=== PATIENT | male | born 1965 | race Caucasian/White ===

== ENCOUNTER 2019-01-02 11:32 | Inpatient (IN) | payer OTHER ==
[~2019-01-02] VITALS: Ht 180.3 cm; Wt 83.0 kg
[2019-01-02] MEDS ORDERED: METFORMIN HCL500 MG PO (11:57)
[2019-01-02] MEDS ORDERED: AMITRIPTYLINE H25 M3 PO (11:58)
[2019-01-02] MEDS ORDERED: AMARYL2 M1 PO (11:59)
[2019-01-02] MEDS ORDERED: NEURONTIN 300300 M1 PO (12:00)
[2019-01-02] MEDS ORDERED: CIPRO500 M1 PO (12:00)
[2019-01-02] MEDS ORDERED: DOXYCYCLINE 10100 MG PO (12:01)
[2019-01-02 12:02] LABS: HEMATOCRIT 35.2 % (42.0-52.0); HEMOGLOBIN 11.7 gm/dL (14.0-18.0); MCHC 33.3 g/dL (28.0-37.0); MCV 84.2 fL (80.0-100.0); MPV 7.1 fl. (7.2-11.1); RBC 4.18 mil/uL (4.50-6.00); RDW-CV 13.1 % (10.5-14.5); WBC 8.9 thou/uL (4.0-11.0)
[2019-01-02] MEDS ORDERED: SIMVASTATIN40 MG PO (12:02)
[2019-01-02 12:10] LABS: CALCIUM 9.4 mg/dL (8.5-10.1); CREATININE 1.7 mg/dL (0.6-1.3); POTASSIUM 4.6 mmol/L (3.5-5.1)
[2019-01-02 14:15] VITALS: BP 152/85
[2019-01-02 16:21] VITALS: BP 155/93
--- NOTE | 2019-01-02 16:47 | EKG ---
[place] [address] ELECTROCARDIOGRAM REPORT Name: KARRIE ABAD Room: [address] ADM IN M.R.#: [id number] Admission: 01/02/19 Attend Phys: Rui Pineda MD Discharge: Date of : 69 Report #: [id number] THIS REPORT FOR: //name// [facility] Test Date: 2019-01-02 Test Time: 12:03:00 Pat Name: KARRIE ABAD Department: Room: [address] Gender: M Wildlife Biology Internship: : 1965 Requested By: Francois Gonzalez Order Number: [id number] Roz MD: Blayne Hoffman Measurements Intervals [place] Rate: 118 P: 34 VA: 165 QRS: 30 QRSD: 99 T: 25 QT: 318 QTc: 446 Interpretive Statements Sinus tachycardia ST elev, probable normal early repol pattern No previous ECG available for comparison Electronically Signed On 01-02-2019 16:46:56 CDT by Blayne Hoffman [email or web address] <ELECTRONICALLY SIGNED> By: Blayne Hoffman MD, [facility] 01/02/19 1646 1203 02 Blayne Hoffman MD, FACC /EPI
--- NOTE | 2019-01-02 17:07 | NUR ---
PATIENT ARRIVED FROM OR THIS AFTERNOON. PATIENT AWAKE A ND ALERT UPON ARRIVAL. PATIENT DENIES ANY PAIN. HISTORY, ASSESSMENT AND VITALS COMPLETED AND DOCUMENTED. LEFT FOOT ELEVATED ON PILLOW AND HAS SURGICAL DRESSING ON. NO BLEED THROUGH AT THIS TIME. PATIENT HAS NOT BEEN OUT OF BED. PATIENT TO HAVE MRI THIS EVENING. IV ANTIBIOTICS ORDERED. PATIENT DENIES ANY NEEDS AT THIS TIME. CALL LIGHT WITHIN REACH. WILL CONTINUE TO MONITOR.
[2019-01-02 20:00] VITALS: BP 179/98
[2019-01-03] VITALS: BP 130/71
--- NOTE | 2019-01-03 01:16 | NUR ---
PT ALERT ORIENTED. L FOOT ELEVATED ON PILLOW. SURGICAL DRSG AND ARUN WRAPED. GOOD SENSATION IN TOES. VOIDS PER URINAL. PIV STARTED IN R HAND FOR SECOND IV SITE TO KEEP ANTIBIOTICS ON TIME.
[2019-01-03 03:54] LABS: HEMATOCRIT 32.1 % (42.0-52.0); MCH 28.7 pg (26.0-34.0); MCHC 34.4 g/dL (28.0-37.0); MCV 83.3 fL (80.0-100.0); MPV 7.2 fl. (7.2-11.1); RBC 3.85 mil/uL (4.50-6.00); WBC 6.4 thou/uL (4.0-11.0)
[2019-01-03 04:00] VITALS: BP 108/67
[2019-01-03 04:14] LABS: ALBUMIN 2.7 g/dL (3.4-5.0); CALCIUM 8.8 mg/dL (8.5-10.1); CREATININE 1.3 mg/dL (0.6-1.3); MAGNESIUM 1.2 mg/dL (1.8-2.4); POTASSIUM 4.3 mmol/L (3.5-5.1); TOTAL BILIRUBIN 0.5 mg/dL (<0.1-1.0)
--- NOTE | 2019-01-03 04:36 | NUR ---
AM MAG LEVEL 1.2. PRN REPLACEMENT STARTED.
[2019-01-03 08:10] VITALS: BP 110/70
--- NOTE | 2019-01-03 13:43 | NUR ---
SHEET METAL INSULATOR SPOKE TO THE PATIENT TO DISCUSS HIS HOME SITUATION, DISCHARGE PLANNING, AND TO INFORM OF THE ROLE OF CM. PATIENT IS ALERT, ORIENTED AND INDEPENDENT WITH ADL'S. PATIENT IS ACTIVE AND WORKS. PATIENT OWNS 0 DME AND HAS NO HX OF HH OR SNF. D/C FISCAL ACCOUNTING CLERK SPOKE TO THE PATIENT TO DISCUSS HIS POSSIBLE NEED FOR IV ABT'S AT D/C. PATIENT CONFIRMS THAT THE PHYSICIAN HAD INFORMED OF THIS AND IS IN AGREEMENT. PATIENT INFORMS THAT HE WOULD BE WILLING TO DO THE IV ABT'S AT HOME AND AGREES TO [facility]ERRAL [facility] D/C FISCAL ACCOUNTING CLERK ATEMPTED TO CONTACT [facility], LEFT A MESSAGE TO RETURN CALL, AND FAXED THE PATIENT'S FACESHEET AND MED LIST TO CHECK PATIENT'S BENEFITS. PATIENT CONCERNED THAT HE MAY NEED AT WALKER AT D/C. CM WILL REMAIN AVAILABLE TO ASSIST AND FOLLOW NEEDED. [facility] PHONE: [phone] FAX: [phone]
[2019-01-03 16:30] VITALS: BP 144/94
--- NOTE | 2019-01-03 18:19 | NUR ---
ASSUMED CARE OF PATIENT AT APPROX 0730. ALERT AND ORIENTED X4. ASSESSMENT COMPLETED AND CHARTED. VSS ON ROOM AIR. MINIMAL COMPLAINT OF PAIN MANAGED WITH ORAL MEDICATION. ANTIBIOTICS INFUSED ORDERED. PATIENT UP WITH THERAPY TODAY. MAGNESIUM REPLACED PER PROTOCOL. PATIENT UP TO CHAIR TODAY WITH THERAPY, MAINTAINING NON WEIGHT BEARING TO LEFT LOWER EXTEREMITY. FALL PRECAUTIONS IN PLACE. CALL LIGHT WITHIN REACH. HOURLY ROUNDS COMPLETED. WILL CONTINUE TO MONITOR.
[2019-01-03 20:30] VITALS: BP 143/88
[2019-01-04] VITALS: BP 125/73
[2019-01-04 03:23] LABS: HEMATOCRIT 32.6 % (42.0-52.0); HEMOGLOBIN 11.1 gm/dL (14.0-18.0); MCH 28.3 pg (26.0-34.0); MCHC 33.9 g/dL (28.0-37.0); MCV 83.6 fL (80.0-100.0); MPV 7.1 fl. (7.2-11.1); RBC 3.9 mil/uL (4.50-6.00); WBC 6.2 thou/uL (4.0-11.0)
[2019-01-04 03:36] LABS: CALCIUM 8.9 mg/dL (8.5-10.1); CREATININE 1.3 mg/dL (0.6-1.3); MAGNESIUM 1.4 mg/dL (1.8-2.4); POTASSIUM 4.3 mmol/L (3.5-5.1)
[2019-01-04 04:00] VITALS: BP 139/89
[2019-01-04 04:15] LABS: PREALBUMIN 15.8 mg/dL (18.0-35.7)
--- NOTE | 2019-01-04 05:29 | NUR ---
PT SLEPT WELL OVERNIGHT AFTER RECEIVING PO PAIN PILL AT HS FOR CO R FOOT PAIN.LFA AND R HAND IV SL, ABX GIVEN ORDERED. HS ACCUCHECK 66, SNACK GIVEN AND CAME UP TO 88. AM LABS DRAWN. TO HAVE VANC TROUGH 1600 TODAY. ARUN WRAP SURGICAL DRSG CDI TO LFOOT, TOES PINK AND WARM. USING URINAL TO VOID FROM BED WITHOUT DIFFICULTY. TALKATIVE, PLEASANT, AOX4. ABLE TO USE CALL LITE AND MAKE NEEDS KNOWN.
[2019-01-04 08:00] VITALS: BP 109/64
[2019-01-04 16:30] VITALS: BP 108/76
--- NOTE | 2019-01-04 17:30 | NUR ---
ASSUMED CARE OF PATIENT AT APPROX 0730. ALERT AND ORIENTED X4. ASSESSMENT COMPLETED AND CHARTED. VSS ON ROOM AIR. MINIMAL COMPLAINTS OF PAIN MANAGED WITH ORAL MEDICATION. ANTIBIOTICS INFUSED ORDERED. SPOKE WITH DR LESLIE THIS AFTERNOON ABOUT CHANGING THE DRESSING TO THE LEFT FOOT, I WAS GOING TO CHANGE IT BUT THE PATIENT ASKED THAT IT NOT BE CHANGED TWICE SO WILL WAIT FOR DR LESLIE TO COME IN TO CHANGE IT. PATIENTS PULSE IS ELEVATED IN THE 100'S, DR ORDERED AND EKG AND ECHO BE COMPLETED. EKG SHOWS SINUS TACHY BUT OTHERWISE UNREMARKABLE. PATIENT UP WITH WALKER, NON WEIGHT BEARING TO LEFT LOWER EXTREMITY. CALL LIGHT WITHIN REACH AND USES APPROPRIATELY. HOURLY ROUNDS COMPLETED. WILL CONTINUE TO MONITOR.
[2019-01-04 20:00] VITALS: BP 130/82
[2019-01-05 04:30] VITALS: BP 142/95
[2019-01-05 05:37] LABS: HEMATOCRIT 33.5 % (42.0-52.0); HEMOGLOBIN 11.5 gm/dL (14.0-18.0); MCH 28.8 pg (26.0-34.0); MCHC 34.5 g/dL (28.0-37.0); MCV 83.4 fL (80.0-100.0); MPV 7.4 fl. (7.2-11.1); RBC 4.01 mil/uL (4.50-6.00); RDW-CV 13.4 % (10.5-14.5); WBC 6.7 thou/uL (4.0-11.0)
[2019-01-05 05:46] LABS: CALCIUM 8.7 mg/dL (8.5-10.1); CREATININE 1.2 mg/dL (0.6-1.3); MAGNESIUM 1.6 mg/dL (1.8-2.4); POTASSIUM 4.5 mmol/L (3.5-5.1)
--- NOTE | 2019-01-05 07:26 | CON ---
[address] [address] CONSULTATION Name: KARRIE ABADRICK Room: [address] IN M.R.#: [id number] Admission: 01/02/19 Attend Phys: Rui Pineda MD Discharge: Date of : 69 Report #: [id number] THIS REPORT FOR: //name// CC: Petar Pineda Tc Stroud DATE OF SERVICE: 01/02/2019 INFECTIOUS DISEASE CONSULTATION ATTENDING PHYSICIAN: Rui Pineda MD REASON FOR EVALUATION: Left foot abscess. HISTORY OF PRESENT ILLNESS: Chart reviewed, patient examined. This is a 53-year-old gentleman with diabetes mellitus diagnosed roughly 10 years ago as type 2. He has at least early evidence of peripheral neuropathy. He apparently stepped on a large thorn that has penetrated through his tennis shoe. This was roughly 2-1/2 weeks ago. He did seek attention and did undergo debridement. It seemed to improve initially. He was on antibiotics; however, more recent culture apparently prompted a change. He has been on doxycycline as well as Cipro at this point. He was admitted due to absence of any clinical improvement. He was seen postoperatively and underwent debridement. Denied any systemic illness of fever or chills. Appetite has generally been good. No pulmonary or gastrointestinal related complaints. He was started empirically on vancomycin as well as piperacillin and tazobactam. He is not encephalopathic. ALLERGIES: None known. CURRENT MEDICATIONS: Include glimepiride, famotidine, enoxaparin, atorvastatin, gabapentin, amitriptyline, metformin, Zosyn, hydrocodone, p.r.n. ondansetron. PAST MEDICAL HISTORY: Diabetes mellitus type 2, history of hypertension. FAMILY HISTORY: Unavailable. REVIEW OF SYSTEMS: Otherwise unremarkable 10-point review of systems, otherwise noted in the history of present illness. PHYSICAL EXAMINATION: GENERAL: Alert, cooperative, appropriate, mild distress, appears to be well nourished. VITAL SIGNS: Stable. HEENT: Normocephalic. Extraocular muscles intact. NECK: [place] [address] CONSULTATION Name: KARRIE ABAD Room: [address]#: [id number] Admission: 01/02/19 Attend Phys: Rui Pineda MD Discharge: Date of : 69 Report #: [id number] LUNGS: Clear to auscultation. HEART: Regular rate and rhythm without murmur. ABDOMEN: Soft, nontender, nondistended. EXTREMITIES: No cyanosis. He has got a large surgical dressing over the left foot. GENITOURINARY: Deferred. LABORATORY DATA: Plain x-ray post-surgery showed ill-defined lucency, possible bone destruction involving the proximal phalanx of the fourth toe at fourth metatarsal head. Sedimentation rate of 80. Lactic acid 1.8. CRP of 44.3. Electrolytes: Sodium 134, potassium 4.6, chloride 98, bicarbonate is 24, BUN and creatinine 28 and 1.7, anion gap of 12, glucose of 157. CBC: White count of 8.9, H and H 11.7 and 35.2, platelets of 373. ASSESSMENT AND PLAN: Suspected deep infection involving the left foot in a patient with diabetes having stepped on a large thorn, is notable he had been wearing a tennis shoe, appears only there was a culture result that prompted change in antibiotics to Cipro, certainly raises question of Pseudomonas. We will try to discuss with Dr. Stoll. Continue broad-spectrum antibiotic therapy and I would continue the vancomycin as well. Follow up postop. I think there is a possibility that he will need to be discharged on parenteral therapy. <ELECTRONICALLY SIGNED> By: Andrew Rojas MD 01/05/19 0726 1504 [id number] Rojas MD /nt
--- NOTE | 2019-01-05 07:37 | NUR ---
Alert and oriented x 4. He is in bed with L foot elevated. Dr Stoll was here last evening and he changed the dressing to his L foot. he put in orders for patient to have nothing by mouth at midnight. He has had nothing for pain or nausea. Vitals are stable. he has slept intermittenly.
[2019-01-05 07:50] VITALS: BP 145/91
--- NOTE | 2019-01-05 10:07 | NUR ---
RIGHT BASILIC VESSEL ACCESSED FOR 4 POLISH SINGLE LUMEN PICC. LINE PRE-TRIMMED TO 43CM AND ADVACNED TO THE ZERO MAK WITH NO RESISTANCE MET. UPPER ARM CIRCUMFERENCE ABOVE INSERTINON SITE= 11 1/4". SHERLOCK MAGNET AND 3CG CONFIRMATION OF TIP TERMINATION AT THE CAVOATRIAL JUNCTION APPRECIATED. STYLET REMOVED, LINE FLUSHED AND INSERTINO SITE DRESSED. REPORT GIVEN TO NURSING STAFF.
--- NOTE | 2019-01-05 10:54 | NUR ---
PREANALYTICS TEAM LEAD RECIEVED A CALLBACK FROM SAMAN WITH [facility] AND HE INFORMS THAT THE PATIENT HAS A $7000 DEDUCTIBLE WHICH HE HAS MET, AND OOP OF $5000 WHICH HE HAS MET $1402 OF THAT. SAMAN ALSO INFORMS THAT SINCE THE PATEINT HAD CIGNA INSURANCE THAT WE MUST WORK THROUGH [employer]. D/C GREENS LABORER TO CONTACT [facility] TO INFORM OF THE NEED FOR IV ABT'S. D/C GREENS LABORER ALSO SPOKE TO I.D. AND ABT ORDER WILL BE WRITTEN TODAY. CM WILL REMAIN AVAILABLE TO ASSIST AND FOLLOW NEEDED.
[2019-01-05] MEDS ORDERED: AUGMENTIN 875-1 EACH PO (13:00)
[2019-01-05] MEDS ORDERED: CEFTRIAXON1 GM/50 M1 IVPB (13:01)
[2019-01-05 13:33] VITALS: BP 145/91
--- NOTE | 2019-01-05 13:45 | NUR ---
PT.TO DISCHARGE HOME TODAY WITH HOME IV ANTIBIOTICS. GAVE PT.OPTION OF COMING IN DAILY TO INFUSION LAB BUT HE CHOSE TO DO THEM AT HOME. DARIELA CALLED AND DISCUSSED WITH JENNY/KATIANA CVEIBHH-[phone]. GAVE ALL INFORMATION. SHE WILL SET UP IV INFUSION CO, HOME [facility] NURSING FOR INFUSION INSTRUCTION,DRESSING CHANGES AND LABS AND P.T. HOME HEALTH WILL CALL HIM TOMORROW TO SET UP TIME TO COME OUT TO HIS HOME. P.T. OK FOR PT.TO USE CRUTCHES. ALL INFORMATION PUT ON DISCHARGE INSTRUCTIONS. HE WILL NEED TO CALL FOR A RIDE HOME.
[2019-01-05 14:21] VITALS: BP 145/91
[2019-01-05 15:29] VITALS: BP 145/91
--- NOTE | 2019-01-05 15:30 | NUR ---
PT GIVEN DISCHARGE INFORMATION, CARE NOTES, AND PRESCRIPTIONS. CRUTCHES GIVEN TO PT. IV REMOVED. PICC IN PLACE. HOME HEALTH SET UP. ORTHO SHOE IN PLACE. FALL RISK PRECAUTIONS IN PLACE. HOURLY ROUNDING COMPLETED. PT LEFT VIA WHEELCHAIR WITH NURSING STAFF TO HOME WITH HOME HEALTH.
--- NOTE | 2019-01-05 16:09 | EKG ---
[place] [address] ELECTROCARDIOGRAM REPORT Name: KARRIE ABAD MARTA Room: [address] DIS IN M.R.#: [id number] Admission: 01/02/19 Attend Phys: Rui Pineda MD Discharge: 01/05/19 Date of : 69 Report #: [id number] THIS REPORT FOR: //name// [facility] Test Date: 2019-01-04 Test Time: 17:41:13 Pat Name: KARRIE ABAD Department: Room: [address] Gender: M Blood Bank Assistant: 14 : 1965 Requested By: Asia Ortiz Order Number: [id number] Roz MD: Pa Randall Measurements Intervals [place] Rate: 114 P: 44 MD: 176 QRS: 60 QRSD: 95 T: 17 QT: 320 QTc: 441 Interpretive Statements Sinus tachycardia Compared to ECG 01/02/2019 12:03:00 no change Electronically Signed On 01-05-2019 16:09:11 CDT by Pa Randall [email or web address] <ELECTRONICALLY SIGNED> By: Pa Randall MD, [facility] 01/05/19 1609 D: [id number] Pa Randall MD, FACC /EPI
--- NOTE | 2019-01-06 10:05 | NUR ---
JOE/KATIANA IBRAHIM CALLED AND STATED IV INFUSION CO. WAS SET UP WITH [facility]. THEY WERE GOING OUT TO PT.'S HOME TODAY AT 10 AND CALLING HIM EARLIER THIS AM WITH TIME OF APPT. NURSING THROUGH [facility] FOR IVAB. HOME HEALTH FOR DRESSING CHANGES AND P.T.WAS SET UP WITH [facility]. THEY WOULD BE CALLING PT.TO SET UP APPT. FOR WED.
--- NOTE | 2019-01-07 13:00 | CON ---
[address] [address] CONSULTATION Name: KARRIE ABAD Room: [address] IN M.R.#: [id number] Admission: 01/02/19 Attend Phys: Rui Pineda MD Discharge: 01/05/19 Date of : 69 Report #: [id number] THIS REPORT FOR: //name// CC: Petar Stroud DATE OF SERVICE: 01/04/2019 CHIEF COMPLAINT: Status post incision and drainage, left foot for deep tissue infection. Surgical tissue and swab cultures pending. He is on parenteral vancomycin and Zosyn with good tolerance. Blood cultures negative x 2. MRI shows fracture to the distal left fourth metatarsal with bone marrow edema consistent with osteomyelitis. The metatarsal neck fracture is also visualized on the plain foot x-rays. Noninvasive arterial Dopplers are ordered, but not performed yet. The patient feels well, has low-grade foot pain well controlled with medication. Good appetite, he has been afebrile with no constitutional symptoms. He has remained nonweightbearing to the foot. LABORATORY DATA: WBC 6.2, RBC 3.90, hemoglobin 11.1, hematocrit 32.6, platelets 321. ESR 80. BUN 15, creatinine 1.3, glucose 131. PHYSICAL EXAMINATION: Substantial decrease in inflammation since surgery. The toes and periwound have immediate capillary refill with no pallor or cyanosis. Low-grade inflammation to left dorsal foot surrounding the fourth intermetatarsal space wound. The wound bed has some yellowish fibrotic tissue with sparse granulation. No bone is visualized since it is covered with soft tissue. No fluctuance or crepitation noted. No expressible purulence. No left popliteal adenopathy. IMPRESSION: Osteomyelitis, left fourth metatarsal with deep tissue infection, type 2 diabetes mellitus, peripheral neuropathy. PLAN: Some slough was removed from the wound bed using scissors and forceps and the wound was cleansed with wound cleanser and dried. It was packed with Aquacel Ag and covered with ABDs, Kerlix and Jimmy. I recommend surgical resection of the left distal fourth metatarsal and amputation of the fourth toe. I discussed the procedure in detail with the patient, and he would like to discuss this treatment with the Infectious Disease physician. I will keep the patient n.p.o. past midnight in anticipation of surgery tomorrow. <ELECTRONICALLY SIGNED> By: Petar Stoll DPM 01/07/19 1300 11 [id number] Stoll DPM /blair
--- NOTE | 2019-01-07 13:00 | CON ---
[address] [address] CONSULTATION Name: KARRIE ABAD Room: [address] IN M.R.#: [id number] Admission: 01/02/19 Attend Phys: Rui Pineda MD Discharge: 01/05/19 Date of : 69 Report #: [id number] THIS REPORT FOR: //name// CC: Petar Stroud DATE OF SERVICE: 01/05/2019 CHIEF COMPLAINT: Follow up incision and drainage, left fourth intermetatarsal space of left foot. MRI is suggestive of osteomyelitis with concomitant fracture of the distal fourth metatarsal. The patient is on parenteral ceftriaxone and Zosyn with good tolerance. He feels well with minimal pain and good appetite. He has remained afebrile. Accu-Cheks is running from 110-200. Surgical cultures are pending. Preoperative outpatient cultures grew Enterobacter species and scant Clostridium. LABORATORY DATA: WBC 6.7, RBC 4.01, hemoglobin 11.5, hematocrit 33.5, and platelets 347. BUN 15, creatinine 1.2, and glucose 125. PHYSICAL EXAMINATION: Decreased inflammation to the left foot with red granulation to the wound bed. No visible bone or joint. No tenderness with palpation. No fluctuance or crepitation. No signs of acute vascular embarrassment. Overall, the inflammation is substantially decreased since prior to surgery. IMPRESSION: Status post incision and drainage, left foot with deep tissue infection, probable osteomyelitis of the fourth metatarsal. PLAN: The wound was gently debrided with scissors and forceps to remove some fibronecrotic tissue. It was cleansed and packed with Aquacel Ag and covered with ABDs, Kerlix, and Jimmy. The patient may ambulate on the heel in a surgical shoe for short distances and transfers only, otherwise he is to remain nonweightbearing to the extremity. Follow up with [facility]. Noninvasive arterial Doppler study result is pending. <ELECTRONICALLY SIGNED> By: Petar Stoll DPM 01/07/19 1300 1253 2324Dclemencia Stoll DPM /nt
--- NOTE | 2019-01-07 13:00 | OP ---
[address] [address] OPERATIVE REPORT Name: KARRIE ABAD Room: [address] IN M.R.#: [id number] Admission: 01/02/19 Attend Phys: Rui Pineda MD Discharge: 01/05/19 Date of : 69 Report #: [id number] THIS REPORT FOR: //name// CC: Petar Stroud DATE OF SERVICE: 01/02/2019 SURGEON: Petar Stoll DPM PREOPERATIVE DIAGNOSIS: Deep tissue infection with abscess, left foot. POSTOPERATIVE DIAGNOSIS: Deep tissue infection with abscess, left foot. PROCEDURE: 1. Incision and drainage, left foot. 2. Soft tissue debridement of tendon, joint capsule and subcutaneous tissue, left foot. INJECTABLES: A 20 mL of a 1:1 mixture of 0.5% Marcaine plain and 1% lidocaine plain. ESTIMATED BLOOD LOSS: Minimal. HEMOSTASIS: Left ankle pneumatic tourniquet at 250 mmHg. CULTURES: 1. Soft tissue, left foot, aerobic and anaerobic. 2. Swab, aerobic and anaerobic. COMPLICATIONS: None. DESCRIPTION OF PROCEDURE: The patient was brought to the OR and placed on the table supine with induction of general LMA anesthesia. A well-padded left ankle pneumatic tourniquet was placed. Local anesthetic block was given to the left foot and extremity was prepped and draped aseptically. After exsanguination and inflation of the tourniquet, the existing wounds to the left fourth interdigital space were enlarged with an incision to the dorsal aspect of the foot along the fourth intermetatarsal space. Sharp dissection and blunt dissection were utilized and roughly 1 mL of purulence was expressed from the proximal aspect of the fourth intermetatarsal space. Use electrocautery for hemostasis and the wound was debrided of all fibrotic tissue to include involve tendons, plantar fascia, portion of the joint capsule and subcutaneous tissue. I sent to represent a portion of tissue for aerobic and anaerobic tissue culture. I did not directly visualize either the fourth or 5th metatarsophalangeal joint, [place] [address] OPERATIVE REPORT Name: KARRIE ABAD Room: [address] IN M.R.#: [id number] Admission: 01/02/19 Attend Phys: Rui Pineda MD Discharge: 01/05/19 Date of : 69 Report #: [id number] both joints were covered with or joint capsule and tissue. The wound was flushed with sterile saline and dried. It was packed and covered with Aquacel Ag. The tourniquet was deflated and normal vascular status returned. A sterile compressive bandage with fluffs, ABDs, Kerlix and Jimmy wrap were applied. The patient left the OR with no complications noted. <ELECTRONICALLY SIGNED> By: Petar Stoll DPM 01/07/19 1300 1620 1644Dclemencia Stoll, FRANCES /blair
== END 2019-01-05 15:34 | disposition home health service (06) | DRG 623 ==
LOC: M.ORTHSURG 11:32
PROVIDERS: Anesthesiology; Internal Medicine; ADMIT Internal Medicine
PROC: 02HV33Z Insertion of Infusion Device into Superior Vena Cava, Percutaneous Approach (ICD-10-PCS; principal; 2019-01-02)
PROC: 0JBR0ZZ Excision of Left Foot Subcutaneous Tissue and Fascia, Open Approach (ICD-10-PCS; principal; 2019-01-02)
DX: E11.69 Type 2 diabetes mellitus with other specified complication (principal); L02.612 Cutaneous abscess of left foot; M86.8X7 Other osteomyelitis, ankle and foot; N17.2 Acute kidney failure with medullary necrosis; E11.621 Type 2 diabetes mellitus with foot ulcer; S92.342A Displaced fracture of fourth metatarsal bone, left foot, initial encounter for closed fracture; E11.42 Type 2 diabetes mellitus with diabetic polyneuropathy; I10 Essential (primary) hypertension; E78.5 Hyperlipidemia, unspecified; X58.XXXA Exposure to other specified factors, initial encounter; N18.2 Chronic kidney disease, stage 2 (mild); R00.0 Tachycardia, unspecified; Z79.1 Long term (current) use of non-steroidal anti-inflammatories (NSAID); Z79.84 Long term (current) use of oral hypoglycemic drugs; Z79.899 Other long term (current) drug therapy; Z82.49 Family history of ischemic heart disease and other diseases of the circulatory system; Y93.89 Activity, other specified; Y92.89 Other specified places as the place of occurrence of the external cause; Y99.8 Other external cause status

== ENCOUNTER → 2019-01-14 | Outpatient (CLI) | payer OTHER ==
[~2019-01-14] MED LIST: AMARYL2 M1 PO; AMITRIPTYLINE H25 M3 PO; AUGMENTIN 875-1 EACH PO; CEFTRIAXON1 GM/50 M1 IVPB; CIPRO500 M1 PO; DOXYCYCLINE 10100 MG PO; METFORMIN HCL500 MG PO; NEURONTIN 300300 M1 PO; SIMVASTATIN40 MG PO
== END ==
LOC: M.WC 12:31
DX: E11.621 Type 2 diabetes mellitus with foot ulcer (principal); L97.522 Non-pressure chronic ulcer of other part of left foot with fat layer exposed; E11.40 Type 2 diabetes mellitus with diabetic neuropathy, unspecified

== ENCOUNTER → 2019-01-21 | Outpatient (CLI) | payer OTHER ==
--- NOTE | 2019-01-22 13:05 | CON ---
[address] [address] CONSULTATION Name: JENNIFFERKARRIE LOZANO Room: [facility] IZAIAH Moore.#: [id number] Admission: 01/21/19 Attend Phys: Petar Stoll DPM Discharge: Date of : 69 Report #: [id number] THIS REPORT FOR: //name// CC: Petar Stroud DATE OF SERVICE: 01/21/2019 INFECTIOUS DISEASE CONSULTATION FOLLOWUP ATTENDING PHYSICIAN: Petar Stoll DPM HISTORY OF PRESENT ILLNESS: Here for follow up of deep infection with associated abscess of his left foot in the fourth and fifth webspace, extending on the dorsal aspect of the foot. Generally, he has been doing well. He has completed roughly 2 weeks of combination therapy with IV ceftriaxone as well as oral Augmentin due to polymicrobial nature of the infection. He denies a significant amount of ongoing pain. He does have intermittent discomfort at times. Denies systemic illness. He notes he has seen a significant decrease in size even over the course of the last [address] Stoll did debride the site. It was generally clear. There was very little hard tissue exposed at this point, primarily had been tendon previously. There was no particular odor, no purulence. ASSESSMENT AND PLAN: Deep infection. Continue the current approach for at least an additional one week, utilizing ceftriaxone and Augmentin. Continue wound care as prescribed, optimize his nutritional status. <ELECTRONICALLY SIGNED> By: Andrew Rojas MD 01/22/19 1305 1627 [id number] Agnes Rojas MD /nt
== END ==
LOC: M.WC 05:08
DX: T81.89XD Other complications of procedures, not elsewhere classified, subsequent encounter (principal); E11.621 Type 2 diabetes mellitus with foot ulcer; L97.522 Non-pressure chronic ulcer of other part of left foot with fat layer exposed; E11.40 Type 2 diabetes mellitus with diabetic neuropathy, unspecified; Y83.8 Other surgical procedures as the cause of abnormal reaction of the patient, or of later complication, without mention of misadventure at the time of the procedure

== ENCOUNTER → 2019-01-28 | Outpatient (CLI) | payer OTHER ==
--- NOTE | 2019-01-30 10:08 | CON ---
[address] [address] CONSULTATION Name: KARRIE ABAD [id number] Admission: 01/28/19 Attend Phys: Petar Stoll DPM Discharge: Date of : 69 Report #: [id number] THIS REPORT FOR: //name// CC: Petar Stroud DATE OF SERVICE: 01/28/2019 FOLLOWUP INFECTIOUS DISEASE CONSULTATION ATTENDING PHYSICIAN: Petar Stoll DPM The [facility]. The patient returns in followup for deep infection involving the left foot, chronic ulcerations healing by secondary intention. He is completed roughly 4 weeks of therapy. Generally, he has been doing well, has shown significant decrease in the overall dimensions of the site, it extends dorsally from the fourth, fifth webspace. On probing, there is no exposed hard tissue. Deep foot infection, at this point we would discontinue the parenteral therapy, go and remove the PICC line. He does have a few more days of parenteral therapy. He is to continue until completion and see him in followup in 2 weeks. Continue wound care as prescribed by Dr. Stoll. <ELECTRONICALLY SIGNED> By: Andrew Rojas MD 01/30/19 1008 1140 1312Joeleanor Rojas MD /nt
== END ==
LOC: M.WC 04:46 → M.RAD 04:46 → M.WC 14:00
DX: E11.621 Type 2 diabetes mellitus with foot ulcer (principal); L97.522 Non-pressure chronic ulcer of other part of left foot with fat layer exposed; E11.40 Type 2 diabetes mellitus with diabetic neuropathy, unspecified

== ENCOUNTER → 2019-02-18 | Outpatient (CLI) | payer OTHER ==
--- NOTE | 2019-02-20 07:45 | CON ---
[address] [address] CONSULTATION Name: JENNIFFERKARRIE LOZANO Room: [facility] IZAIAH Moore.#: [id number] Admission: 02/18/19 Attend Phys: Petar Stoll DPM Discharge: Date of : 69 Report #: [id number] THIS REPORT FOR: //name// CC: Petar Stroud DATE OF SERVICE: 02/18/2019 INFECTIOUS DISEASE CONSULTATION FOLLOWUP ATTENDING PHYSICIAN: Dr. Petar Donnelly. HISTORY OF PRESENT ILLNESS: He is here for deep foot infection involving the web space fourth and fifth digits, with abscess post-drainage. The patient returns in followup ____ continue wound care to the site. Clinically, he has improved fairly dramatically. He does have some residual ulcer over the lateral aspect of the fourth toe within the web space, otherwise degree of inflammation is significantly less. On questioning, he denies any systemic illness. Generally, he has been feeling well. Appetite is satisfactory. ASSESSMENT AND PLAN: Deep infection involving the left foot post-evacuation of an abscess. At this point, he has completed a course of prescribed therapy and I think there is little reason to continue that. Continue wound care as prescribed by Dr. Stoll. We will be available as needed. <ELECTRONICALLY SIGNED> By: Andrew Rojas MD 02/20/19 0745 0910 Martha Rojas MD /blair
== END ==
LOC: M.WC 02-11 14:00
DX: T81.89XD Other complications of procedures, not elsewhere classified, subsequent encounter (principal); E11.621 Type 2 diabetes mellitus with foot ulcer; L97.521 Non-pressure chronic ulcer of other part of left foot limited to breakdown of skin; E11.42 Type 2 diabetes mellitus with diabetic polyneuropathy; Y83.8 Other surgical procedures as the cause of abnormal reaction of the patient, or of later complication, without mention of misadventure at the time of the procedure

== ENCOUNTER → 2019-02-25 | Outpatient (CLI) | payer OTHER | LOC: M.WC 04:59 | DX: T81.89XD Other complications of procedures, not elsewhere classified, subsequent encounter (principal); E11.621 Type 2 diabetes mellitus with foot ulcer; L97.526 Non-pressure chronic ulcer of other part of left foot with bone involvement without evidence of necrosis; E11.40 Type 2 diabetes mellitus with diabetic neuropathy, unspecified; Y83.8 Other surgical procedures as the cause of abnormal reaction of the patient, or of later complication, without mention of misadventure at the time of the procedure ==

== ENCOUNTER → 2019-03-04 | Outpatient (CLI) | payer OTHER | LOC: M.WC 05:11 | DX: T81.89XD Other complications of procedures, not elsewhere classified, subsequent encounter (principal); E11.621 Type 2 diabetes mellitus with foot ulcer; L97.526 Non-pressure chronic ulcer of other part of left foot with bone involvement without evidence of necrosis; E11.40 Type 2 diabetes mellitus with diabetic neuropathy, unspecified; Y83.8 Other surgical procedures as the cause of abnormal reaction of the patient, or of later complication, without mention of misadventure at the time of the procedure ==

== ENCOUNTER → 2019-03-18 | Outpatient (CLI) | payer OTHER | LOC: M.WC 03-11 13:00 | DX: T81.89XD Other complications of procedures, not elsewhere classified, subsequent encounter (principal); E11.621 Type 2 diabetes mellitus with foot ulcer; L97.521 Non-pressure chronic ulcer of other part of left foot limited to breakdown of skin; E11.40 Type 2 diabetes mellitus with diabetic neuropathy, unspecified; Y83.8 Other surgical procedures as the cause of abnormal reaction of the patient, or of later complication, without mention of misadventure at the time of the procedure ==